=== PATIENT | female | born 1940 | race Caucasian/White ===

== ENCOUNTER → 2018-06-25 | Outpatient (CLI) | payer MEDICARE | LOC: LAB SHORT 12:22 → LAB 12:22 | DX: R30.0 Dysuria (principal) | CPT/HCPCS: 87077; 87086; 87186 ==

== ENCOUNTER → 2018-07-06 | Outpatient (CLI) | payer MEDICARE | END | disposition home or self-care (01) | LOC: LAB SHORT 10:30 → LAB 10:30 | DX: N39.0 Urinary tract infection, site not specified (principal) | CPT/HCPCS: 87077; 87086; 87186 ==

== ENCOUNTER → 2018-07-18 | Outpatient (CLI) | payer MEDICARE ==
[2018-07-19 09:47] LABS: Bilirubin, Urine Neg (Neg); Blood, Urine Neg (Neg); Glucose Qualitative, Urine Neg (Neg); Ketones, Urine Neg (Neg); Leukocyte Esterase, Urine Neg (Neg); Nitrite, Urine Neg (Neg); Protein, Urine Neg (Neg); Specific Gravity, Urine 1.015 (1.003-1.022); Urobilinogen, Urine NORM (Normal)
[2018-07-19 09:49] LABS: Appearance, Urine Clear (Clear); Color, Urine Yellow (P-Yellow)
== END | disposition home or self-care (01) ==
LOC: LAB SHORT 11:50 → LAB 11:50
PROVIDERS: Physician Assistant
DX: N39.0 Urinary tract infection, site not specified (principal)
CPT/HCPCS: 81003

== ENCOUNTER → 2018-08-01 | Outpatient (CLI) | payer MEDICARE | LOC: LAB SHORT 09:20 → LAB 09:20 | DX: R30.0 Dysuria (principal) | CPT/HCPCS: 87077; 87086; 87186 ==

== ENCOUNTER 2019-12-16 00:58 | Emergency (ER) | payer MEDICARE ==
[~2019-12-16] VITALS: Ht 162.6 cm; Wt 72.6 kg
[2019-12-16] MEDS ORDERED: DRON400T (01:23)
[2019-12-16] MEDS ORDERED: METOPROLOL TART25 MG (01:24)
[2019-12-16] MEDS ORDERED: ELIQUIS5 M3 PO (01:24)
[2019-12-16] MEDS ORDERED: OMEP20ER PO (01:25)
[2019-12-16] MEDS ORDERED: LISI5 PO (01:25)
[2019-12-16] MEDS ORDERED: FAMO20 PO (01:26)
[2019-12-16] MEDS ORDERED: NITROFURANTOIN50 M1 PO (01:26)
[2019-12-16 01:41] LABS: BASOPHILS ABSOLUTE AUTO 0.11 K/mm3 (0.00-0.23); BASOPHILS PERCENT AUTO 0 % (0-2); EOSINOPHILS ABSOLUTE AUTO 0.27 K/mm3 (0.00-0.68); EOSINOPHILS PERCENT AUTO 1 % (0-6); Hematocrit 38.8 % (33.0-51.0); Hemoglobin 12.9 g/dL (11.5-16.0); Mean Corpuscular HGB 30.6 pg (26.0-34.0); Mean Corpuscular HGB Conc 33.2 g/dL (31.5-36.5); Mean Corpuscular Volume 92 fL (80-100); Mean Platelet Volume 11.6 fL (9.1-12.4); NRBC ABSOLUTE 0.02 K/mm3 (0.00-0.02); NRBC Auto 0.1 /100 WBC (0.0-0.2); Platelet Count 123 K/mm3 (150-400); RDW Coefficient Variation 13.6 % (11.7-14.2); RDW Standard Deviation 46.2 fL (35.1-46.3); Red Blood Cell Count 4.22 M/mm3 (3.80-5.20); White Blood Cell Count 26.68 K/mm3 (4.00-11.30)
[2019-12-16 01:42] LABS: IMMATURE GRAN ABSOLUTE AUTO 0.11 K/mm3 (0.00-0.10); IMMATURE GRAN PERCENT AUTO 0 % (0-1); LYMPHOCYTES PERCENT AUTO 69 % (21-46); MONOCYTES ABSOLUTE AUTO 2.57 K/mm3 (0.16-1.47); MONOCYTES PERCENT AUTO 10 % (4-13); NEUTROPHILS ABSOLUTE AUTO 5.22 K/mm3 (1.96-9.15); NEUTROPHILS PERCENT AUTO 20 % (41-73)
[2019-12-16 01:59] LABS: Alanine Aminotransfer (ALT/SGP 33 U/L (12-78); Albumin, Blood 3.9 g/dL (3.4-5.0); Albumin/Globulin Ratio 1.5 (0.8-1.8); Alk Phos 57 U/L (50-136); Anion Gap 5 mmol/L (6-16); Aspartate Aminotrans (AST/SGOT 21 U/L (12-37); BASOPHILS ABSOLUTE MAN 0.26 K/mm3 (0.00-0.23); BASOPHILS PERCENT MAN 1 % (0-2); Bilirubin, Total 0.5 mg/dL (0.1-1.0); Blood Urea Nitrogen 23 mg/dL (8-24); CO2, Blood 27 mmol/L (21-32); Calcium, Blood 8.8 mg/dL (8.5-10.1); Chloride, Blood 109 mmol/L (98-108); Creatinine, Blood 1.15 mg/dL (0.40-1.00); EOSINOPHILS ABSOLUTE MAN 0.26 K/mm3 (0.00-0.68); EOSINOPHILS PERCENT MAN 1 % (0-6); Globulin, Blood 2.6 g/dL (2.2-4.0); Glomerular Filtration Rate 48 (60-); Glucose, Blood 105 mg/dL (70-99); LYMPHOCYTES ABSOLUTE MAN 17.34 K/mm3 (0.84-5.20); LYMPHOCYTES PERCENT MAN 65 % (21-46); METAMYELOCYTE ABSOLUTE MAN 0.26 K/mm3 (0.00-0.00); METAMYELOCYTE PERCENT MAN 1 % (0-0); MONOCYTES ABSOLUTE MAN 1.06 K/mm3 (0.16-1.47); MONOCYTES PERCENT MAN 4 % (4-13); Potassium, Blood 4.4 mmol/L (3.5-5.5); SEG NEUTROPHILS PERCENT MAN 18 % (41-73); Sodium, Blood 141 mmol/L (136-145); TOTAL CELLS COUNTED 100; Total Protein, Blood 6.5 g/dL (6.4-8.2); Troponin I <0.015 ng/mL (0.000-0.040)
[2019-12-16 02:01] LABS: OTHER CELL PERCENT MAN 10 % (0-0)
== END 2019-12-16 02:35 | disposition home or self-care (01) ==
LOC: ER 00:58
PROVIDERS: Emergency Medicine
DX: R00.1 Bradycardia, unspecified (principal); I48.91 Unspecified atrial fibrillation; I10 Essential (primary) hypertension; Z79.899 Other long term (current) drug therapy; Z85.6 Personal history of leukemia
CPT/HCPCS: 36415; 80053; 84484; 85025; 93005; 93010; 99285-25

== ENCOUNTER → 2021-07-04 | Outpatient (CLI) | payer MEDICARE ==
[~2021-07-04] MED LIST: DRON400T; ELIQUIS5 M3 PO; FAMO20 PO; LISI5 PO; METOPROLOL TART25 MG; NITROFURANTOIN50 M1 PO; OMEP20ER PO
[2021-07-04 13:58] LABS: Source, Urine Clean Catch
[2021-07-04 18:50] LABS: Bilirubin, Urine Neg (Neg); Blood, Urine 4+ (Neg); Glucose Qualitative, Urine Neg (Neg); Ketones, Urine Neg (Neg); Leukocyte Esterase, Urine 3+ (Neg); Nitrite, Urine Pos (Neg); Protein, Urine 1+ (Neg); Urobilinogen, Urine NORM (Normal); pH, Urine 6.5 (5.0-8.0)
[2021-07-04 19:17] LABS: Appearance, Urine Clear (Clear); Color, Urine Amber (P-Yellow)
[2021-07-04 19:18] LABS: Bacteria Many /hpf; Mucus Light (0-Heavy); Red Blood Cells, Urine 25-50 /hpf (0-2); Renal Epithelial Few /hpf (0-Rare); Squamous Epithelial Cells Rare /hpf (Few)
== END ==
LOC: LAB 13:55 → LAB SHORT 13:55 → LAB FUT 06-21 12:30
PROVIDERS: Physician Assistant Medical
DX: N39.0 Urinary tract infection, site not specified (principal)
CPT/HCPCS: 81001; 87077; 87086; 87186